=== PATIENT | male | born 1945 | race Caucasian/White ===

== ENCOUNTER → 2017-01-05 | Day surgery (SDC) | payer MEDICARE, BC ==
[~2017-01-05] MED LIST: ACETAMINOPHEN/HYDROcodone 325 MG/5 MG TAB ONE; LACTATED RINGER'S 1000 ML INJ 1,000 ML ONE; MIDAZOLAM HCL 2 MG/2 ML VIAL ONE; ceFAZolin INJ 1,000 MG VIAL ONE
--- NOTE | 2017-01-05 13:15 | TN ---
cc: DAYNA MI M.D. DATE OF SURGERY 01/05/2017 PREOPERATIVE DIAGNOSIS Right inguinal hernia. POSTOPERATIVE DIAGNOSIS Right indirect inguinal hernia. PROCEDURE Repair of right indirect inguinal hernia with mesh. SURGEON Dr. Mi ARTIFICIAL STONE APPLICATOR Miss Morales Mike, advanced registered nurse practitioner The [employer] was present from beginning to the end of the case assisting in all portions of the procedure. It was necessary to have this individual in the room to assist in the above surgical procedure. The surgical procedure was assisted by the [employer]. The [employer] presence was necessary throughout the case for appropriate retraction, dissection, visualization, and resection of the important anatomical structures during the surgical procedure. The [employer] was assisting throughout the entirety of the operation. The skill set of the [employer] is medically and surgically necessary to safely complete the surgical procedure. During the surgical case the operating room commercial tire service technician was working instrument table and passing instruments to the attending surgeon and [employer] The [employer] was directly assisting the operating surgeon and involved in the technical aspects of the surgical case. ANESTHESIA General. INDICATIONS A pleasant 71-year-old gentleman who has a symptomatic right inguinal hernia. Plans were made for repair. OPERATIVE PROCEDURE The patient was placed in supine position. After anesthesia his at right groin and abdomen was prepped with Betadine. He was given antibiotics. We make an oblique incision overlying the internal and external ring. After a time-out was done he was given preoperative antibiotics. We dissect down through Kelley's fascia identifying the external oblique aponeurosis which is incised. Cord structures were then surrounded with a Makenzie drain, moderate-sized indirect defect is seen and is away from the cord structures, opened and twisted upon itself, ligated at the base and amputated. The stump is then dunked into the internal ring. We then place a polypropylene mesh cut to size, secured to the pubic tubercle, Bridger's ligament, the iliopubic tracked out laterally and the conjoined tendon medially. Tails were fashioned and secured to themselves with a 0 Ethibond to the internal oblique aponeurosis. After this was done we then closed the external oblique aponeurosis with a 2-0 Vicryl, Kelley's with a 3-0 Vicryl and skin with 4-0 Vicryl. Steri-Strips applied, sterile bandage applied. The patient tolerated the procedure well and had no immediate postop complications. MD JORGE Kellogg/JUDSON /1:03 PM /1:12 PM SB
== END | disposition home or self-care (01) ==
LOC: ESDC 10:16
PROVIDERS: ATTEND Surgery
DX: K40.90 Unilateral inguinal hernia, without obstruction or gangrene, not specified as recurrent (principal)
CPT/HCPCS: 00830; 49505; 88302; C1781; J0690; J2250; J3010; J7120